=== PATIENT | male | born 1955 | race Caucasian/White ===

== ENCOUNTER 2016-11-21 15:39 | Emergency (ER) | payer BC, OTHER ==
[~2016-11-21] VITALS: Ht 177.8 cm; Wt 108.9 kg
[2016-11-21] MEDS ORDERED: AUGM875T27 PO (15:55)
[2016-11-21] MEDS ORDERED: ZYRT10CA PO (15:55)
[2016-11-21] MEDS ORDERED: LISI10TA4 (15:55)
[2016-11-21] MEDS ORDERED: PRAV20TA2 (15:55)
[2016-11-21] MEDS ORDERED: ACETAMINOPHEN 325 MG TAB PO ONE (17:00)
[2016-11-21] MEDS ORDERED: LEVALBUTEROL 1.25 MG/0.5 ML CONCENTRATE NEB NEB ONE (17:00)
[2016-11-21] MEDS ORDERED: ZITHTAB PO (17:28)
[2016-11-21] MEDS ORDERED: ALBU17IN INH (17:29)
[2016-11-21] MEDS ORDERED: MUCI600T34 PO (17:29)
--- NOTE | 2016-11-21 17:29 | REP ---
Clinical: Cough. Technique: PA and lateral. Comparison: None. Findings: Moderate hiatal hernia and evidence for prior repair. Cardiac silhouette is upper limits of normal. Lung mcintyre demonstrate chronic-appearing changes. Mild bronchitis cannot be excluded. No focal consolidation, effusion, or pneumothorax. Skeletal structures normal for age. Impression: Hiatal hernia. Chronic-appearing changes. Cannot exclude mild bronchitis. Signed by Ck Hinton MD 11/21/2016 05:21 P
[2016-11-21] MEDS ORDERED: AZITHROMYCIN 250 MG TAB PO ONE (17:30)
[2016-11-21 17:38] VITALS: BP 127/79
== END 2016-11-21 17:46 | disposition home or self-care (01) ==
LOC: M ED 16:50
DX: J20.9 Acute bronchitis, unspecified (principal); J02.0 Streptococcal pharyngitis; H66.90 Otitis media, unspecified, unspecified ear; K44.9 Diaphragmatic hernia without obstruction or gangrene; E78.00 Pure hypercholesterolemia, unspecified; I10 Essential (primary) hypertension; K57.92 Diverticulitis of intestine, part unspecified, without perforation or abscess without bleeding; R73.09 Other abnormal glucose; Z87.891 Personal history of nicotine dependence; Z88.8 Allergy status to other drugs, medicaments and biological substances; Z79.2 Long term (current) use of antibiotics; Z79.899 Other long term (current) drug therapy

== ENCOUNTER → 2022-02-19 | Outpatient (CLI) | payer MEDICARE, BC ==
[~2022-02-19] MED LIST: ALBU17IN INH; AUGM875T28 PO; LISI10TA22; MUCI600T37 PO; PRAV20TA2; ZITHTAB PO; ZYRT10CA PO
== END ==
LOC: M PLAIMG 06:37
PROVIDERS: ATTEND Podiatrist Foot & Ankle Surgery
DX: G57.62 Lesion of plantar nerve, left lower limb (principal); G57.61 Lesion of plantar nerve, right lower limb; G57.52 Tarsal tunnel syndrome, left lower limb; E11.42 Type 2 diabetes mellitus with diabetic polyneuropathy

== ENCOUNTER 2023-01-09 05:54 | Inpatient (IN) | payer MEDICARE, BC ==
[~2023-01-09] VITALS: Ht 177.8 cm; Wt 101.7 kg
[2023-01-09 06:46] LABS: BASO # 0.1 10^3/uL (0.0-0.2); BASO % 0.7 % (0.0-1.0); EOS # 0.2 10^3/uL (0.0-0.5); EOS % 1.2 % (0.0-3.0); HEMOGLOBIN 16.6 g/dl (13.5-17.5); LYMPH # 1.3 10^3/uL (1.5-5.0); LYMPH % 7.8 % (24.0-44.0); MEAN CORPUSCULAR HEMOGLOBIN 30.2 pg (27.0-33.0); MEAN CORPUSCULAR HGB CONC 32.5 g/dl (32.0-36.5); MEAN CORPUSCULAR VOLUME 92.7 fl (80.0-96.0); MONO % 6.3 % (2.0-8.0); NEUTROPHILS # 13.5 10^3/uL (1.5-8.5); NEUTROPHILS % 83.3 % (36.0-66.0); PLATELET COUNT, AUTOMATED 300 10^3/uL (150-450); WHITE BLOOD COUNT 16.2 10^3/uL (4.0-10.0)
[2023-01-09 06:56] LABS: INR 0.8; PROTHROMBIN TIME 11.3 SECONDS (12.5-14.5)
[2023-01-09 07:10] LABS: AMYLASE 383 U/L (30-118)
[2023-01-09 07:11] LABS: ALBUMIN 4.9 G/DL (3.2-5.2); ALKALINE PHOSPHATASE 114 U/L (46-116); ALT/SGPT 39 U/L (7.0-40); AST/SGOT 36 U/L (<34); BILIRUBIN,DIRECT 0.2 MG/DL (<0.4); BILIRUBIN,TOTAL 0.8 MG/DL (0.3-1.2); BLOOD UREA NITROGEN 23 MG/DL (9-23); CALCIUM LEVEL 10.6 MG/DL (8.3-10.6); CARBON DIOXIDE LEVEL 27 MMOL/L (20-31); CHLORIDE LEVEL 98 MMOL/L (98-107); CK-MB VALUE MASS 3.9 NG/ML (<3.6); CREATININE FOR GFR 0.98 MG/DL (0.70-1.30); GLOMERULAR FILTRATION RATE > 60.0 (>49); GLUCOSE, FASTING 248 MG/DL (74-106); POTASSIUM SERUM 4.2 MMOL/L (3.5-5.1); SODIUM LEVEL 136 MMOL/L (136-145); TOTAL PROTEIN 8.1 G/DL (5.7-8.2)
[2023-01-09 07:13] LABS: RSV AMPLIFICATION NEGATIVE (NEGATIVE)
[2023-01-09] MEDS ORDERED: NS 1,000 ML IV ONE ×2 (07:15→08:30)
[2023-01-09] MEDS ORDERED: PIPERACILLIN/TAZOBACTAM SOD 4.5 GM in D5W MINI-BAG PLUS 50 ML IV ONE (07:20)
[2023-01-09] MEDS ORDERED: ONDANSETRON 4MG 2ML VIAL IV ONE (07:25)
[2023-01-09] MEDS ORDERED: ONDANSETRON 4MG 2ML VIAL As Ordered ONE (07:27)
[2023-01-09] MEDS ORDERED: ISOVUE-370 76% 100ML VIAL As Ordered ONE (07:31)
[2023-01-09 07:38] LABS: CPK CREATINE PHOSPHOKINASE 146 U/L (46-171); LIPASE 793 U/L (12-53); MB/CK RELATIVE INDEX 2.67 (< OR =4)
[2023-01-09] MEDS: MORPHINE 2 MG/ML 1ML VIAL IV PRN ×4 (07:56→23:13)
[2023-01-09 08:03] LABS: CK-MB VALUE MASS 3.6 NG/ML (<3.6)
[2023-01-09 08:05] LABS: MB/CK RELATIVE INDEX 2.76 (< OR =4)
[2023-01-09] MEDS ORDERED: metroNIDAZOLE 500 MG in IV 1 EA IV ONE (08:40)
[2023-01-09] MEDS ORDERED: LIDOCAINE 2% JELLY 6ML SYRINGE TOP ONE (08:45)
[2023-01-09] MEDS: SINEMET**CR** 25/100 TABCR PO SCH (09:00)
[2023-01-09] MEDS: GABAPENTIN 300 MG CAP PO SCH ×3 (09:00→21:44)
[2023-01-09] MEDS ORDERED: CREON-24 CAPSULE PO PRN (09:00)
[2023-01-09] MEDS: DULoxetine 30MG CAPSULE (CYMBALTA) PO SCH ×2 (09:00→21:45)
[2023-01-09] MEDS: MELOXICAM (MOBIC) 7.5 MG TAB PO SCH (09:00)
[2023-01-09] MEDS: ASPIRIN 81MG ENTERIC TABLET PO SCH (09:00)
[2023-01-09] MEDS: METOPROLOL SUCC *XL* 25MG TAB (TopROL *XL*) PO SCH (09:00)
[2023-01-09] MEDS ORDERED: CREO24CA PO ×2 (09:17)
[2023-01-09] MEDS ORDERED: LISI10TA22 PO (09:25)
[2023-01-09] MEDS ORDERED: CYMB1CAP5 PO ×2 (09:25)
[2023-01-09] MEDS ORDERED: XIFA550T PO (09:25)
[2023-01-09] MEDS ORDERED: COLE1TAB PO ×2 (09:25)
[2023-01-09] MEDS ORDERED: PRAV80TA2 PO (09:25)
[2023-01-09] MEDS ORDERED: GABA-282 PO (09:25)
[2023-01-09] MEDS ORDERED: METO1TAB32 PO (09:25)
[2023-01-09] MEDS ORDERED: ECOT81TA5 PO (09:27)
[2023-01-09] MEDS ORDERED: TAB-TAB3 PO (09:27)
[2023-01-09] MEDS ORDERED: MELO15TA28 PO (09:45)
[2023-01-09] MEDS ORDERED: CARB1TAB PO (09:45)
[2023-01-09] MEDS ORDERED: ACET-897 PO (09:45)
[2023-01-09] MEDS ORDERED: COLA100C5 PO (09:46)
[2023-01-09] MEDS ORDERED: HOME MED LIST COMPLETE! XX SCH (09:50)
[2023-01-09] MEDS ORDERED: DEXTROSE 50% 50ML SYRINGE IV PRN (10:05)
[2023-01-09] MEDS ORDERED: GLUCAGON INJ 1MG VIAL SC PRN (10:05)
[2023-01-09] MEDS ORDERED: ONDANSETRON 4MG 2ML VIAL IV PRN (10:05)
[2023-01-09] MEDS ORDERED: DOCUSATE SODIUM 100MG CAPSULE PO PRN (10:05)
[2023-01-09] MEDS ORDERED: GLUCOSE 4GM CHEW TABLET PO PRN (10:05)
[2023-01-09] MEDS: CREON-24 CAPSULE PO SCH ×2 (12:30→16:41)
[2023-01-09] MEDS: NS 1,000 ML IV SCH ×2 (15:23→23:18)
[2023-01-09 15:40] VITALS: BP 155/90
[2023-01-09] MEDS ORDERED: CHLORASEPTIC SPRAY MT PRN (15:40)
[2023-01-09] MEDS: ACETAMINOPHEN 500 MG TAB PO PRN (15:42)
[2023-01-09] MEDS: FEXOFENADINE 60MG TAB PO SCH (16:40)
[2023-01-09] MEDS: metroNIDAZOLE 500 MG in IV 1 EA IV SCH (17:11)
[2023-01-09 21:33] VITALS: BP 174/66
[2023-01-09] MEDS: PRAVASTATIN 20 MG TAB PO SCH (21:44)
[2023-01-09 23:00] VITALS: BP 153/69
[2023-01-10] MEDS: metroNIDAZOLE 500 MG in IV 1 EA IV SCH ×3 (02:30→17:48)
[2023-01-10] MEDS: MORPHINE 2 MG/ML 1ML VIAL IV PRN ×5 (03:02→21:15)
[2023-01-10 06:00] VITALS: BP 147/70
[2023-01-10 06:52] LABS: HEMATOCRIT 39.8 % (42.0-52.0); MEAN CORPUSCULAR HEMOGLOBIN 30.8 pg (27.0-33.0); MEAN CORPUSCULAR HGB CONC 33.2 g/dl (32.0-36.5); MEAN CORPUSCULAR VOLUME 92.8 fl (80.0-96.0); PLATELET COUNT, AUTOMATED 204 10^3/uL (150-450); RED BLOOD COUNT 4.29 10^6/uL (4.30-6.10); WHITE BLOOD COUNT 9.9 10^3/uL (4.0-10.0)
[2023-01-10 06:53] LABS: HEMOGLOBIN 13.2 g/dl (13.5-17.5)
[2023-01-10 07:03] LABS: LIPASE 45 U/L (12-53)
[2023-01-10 07:11] LABS: ALBUMIN 3.6 G/DL (3.2-5.2); ALKALINE PHOSPHATASE 87 U/L (46-116); ALT/SGPT 25 U/L (7.0-40); AST/SGOT 22 U/L (<34); BILIRUBIN,TOTAL 1.1 MG/DL (0.3-1.2); BLOOD UREA NITROGEN 15 MG/DL (9-23); CALCIUM LEVEL 8.5 MG/DL (8.3-10.6); CARBON DIOXIDE LEVEL 26 MMOL/L (20-31); CHLORIDE LEVEL 105 MMOL/L (98-107); CREATININE FOR GFR 0.68 MG/DL (0.70-1.30); GLOMERULAR FILTRATION RATE > 60.0 (>49); GLUCOSE, FASTING 149 MG/DL (74-106); MAGNESIUM LEVEL 1.6 MG/DL (1.8-2.4); POTASSIUM SERUM 3.6 MMOL/L (3.5-5.1); SODIUM LEVEL 139 MMOL/L (136-145)
[2023-01-10] MEDS ORDERED: MAG SULF 1GM/100ML (MAG RUN) 1 GM in IV 1 EA IV ONE (08:00)
[2023-01-10] MEDS: CREON-24 CAPSULE PO SCH ×3 (08:00→17:16)
[2023-01-10] MEDS: ASPIRIN 81MG ENTERIC TABLET PO SCH (08:19)
[2023-01-10] MEDS: METOPROLOL SUCC *XL* 25MG TAB (TopROL *XL*) PO SCH (08:19)
[2023-01-10] MEDS: GABAPENTIN 300 MG CAP PO SCH ×3 (08:19→21:00)
[2023-01-10] MEDS: FEXOFENADINE 60MG TAB PO SCH (08:40)
[2023-01-10] MEDS: MELOXICAM (MOBIC) 7.5 MG TAB PO SCH (08:40)
[2023-01-10] MEDS: DULoxetine 30MG CAPSULE (CYMBALTA) PO SCH ×2 (08:40→21:00)
[2023-01-10] MEDS: SINEMET**CR** 25/100 TABCR PO SCH (08:41)
[2023-01-10] MEDS: NS 1,000 ML IV SCH ×2 (11:05→23:35)
[2023-01-10 14:00] VITALS: BP 142/76
[2023-01-10] MEDS: ACETAMINOPHEN 500 MG TAB PO PRN (14:20)
[2023-01-10] MEDS: SUCRALFATE SUSP 1GM/10ML UD NG SCH (17:48)
[2023-01-10 20:00] VITALS: BP 142/77
[2023-01-10] MEDS ORDERED: diphenhydrAMINE 50MG/ML VIAL IV ONE (20:30)
[2023-01-10] MEDS: PRAVASTATIN 20 MG TAB PO SCH (21:00)
[2023-01-11] MEDS: SUCRALFATE SUSP 1GM/10ML UD NG SCH ×5 (01:21→23:23)
[2023-01-11] MEDS: metroNIDAZOLE 500 MG in IV 1 EA IV SCH ×3 (01:23→17:11)
[2023-01-11 06:06] VITALS: BP 146/82
[2023-01-11] MEDS: CREON-24 CAPSULE PO SCH ×3 (07:54→15:25)
[2023-01-11] MEDS: FEXOFENADINE 60MG TAB PO SCH (07:57)
[2023-01-11] MEDS: DULoxetine 30MG CAPSULE (CYMBALTA) PO SCH ×2 (07:57→20:34)
[2023-01-11] MEDS: MELOXICAM (MOBIC) 7.5 MG TAB PO SCH (07:58)
[2023-01-11] MEDS: SINEMET**CR** 25/100 TABCR PO SCH (07:58)
[2023-01-11] MEDS: GABAPENTIN 300 MG CAP PO SCH ×3 (07:58→20:34)
[2023-01-11] MEDS: ASPIRIN 81MG ENTERIC TABLET PO SCH (08:01)
[2023-01-11] MEDS: METOPROLOL SUCC *XL* 25MG TAB (TopROL *XL*) PO SCH (08:02)
[2023-01-11 08:48] LABS: BASO % 0.5 % (0.0-1.0); EOS # 0.3 10^3/uL (0.0-0.5); EOS % 3.4 % (0.0-3.0); HEMATOCRIT 41.2 % (42.0-52.0); HEMOGLOBIN 13.4 g/dl (13.5-17.5); LYMPH # 0.8 10^3/uL (1.5-5.0); LYMPH % 9.1 % (24.0-44.0); MEAN CORPUSCULAR HEMOGLOBIN 30.5 pg (27.0-33.0); MEAN CORPUSCULAR HGB CONC 32.5 g/dl (32.0-36.5); MEAN CORPUSCULAR VOLUME 93.8 fl (80.0-96.0); MONO # 0.8 10^3/uL (0.0-0.8); MONO % 9.8 % (2.0-8.0); NEUTROPHILS # 6.6 10^3/uL (1.5-8.5); PLATELET COUNT, AUTOMATED 192 10^3/uL (150-450); RED BLOOD COUNT 4.39 10^6/uL (4.30-6.10); WHITE BLOOD COUNT 8.6 10^3/uL (4.0-10.0)
[2023-01-11 09:17] LABS: ALBUMIN 3.3 G/DL (3.2-5.2); ALKALINE PHOSPHATASE 90 U/L (46-116); ALT/SGPT < 9 U/L (7.0-40); AST/SGOT 21 U/L (<34); BLOOD UREA NITROGEN 8 MG/DL (9-23); CALCIUM LEVEL 8.7 MG/DL (8.3-10.6); CARBON DIOXIDE LEVEL 29 MMOL/L (20-31); CHLORIDE LEVEL 105 MMOL/L (98-107); CREATININE FOR GFR 0.67 MG/DL (0.70-1.30); GLOMERULAR FILTRATION RATE > 60.0 (>49); GLUCOSE, FASTING 141 MG/DL (74-106); MAGNESIUM LEVEL 1.8 MG/DL (1.8-2.4); POTASSIUM SERUM 4.1 MMOL/L (3.5-5.1); SODIUM LEVEL 139 MMOL/L (136-145); TOTAL PROTEIN 6.2 G/DL (5.7-8.2)
[2023-01-11] MEDS: ACETAMINOPHEN 500 MG TAB PO PRN (12:33)
[2023-01-11 14:00] VITALS: BP 137/83
[2023-01-11] MEDS: NS 1,000 ML IV SCH (15:34)
[2023-01-11] MEDS ORDERED: diphenhydrAMINE 25MG CAP PO ONE (20:25)
[2023-01-11] MEDS: PRAVASTATIN 20 MG TAB PO SCH (20:34)
[2023-01-12] MEDS: NS 1,000 ML IV SCH (00:35)
[2023-01-12] MEDS: metroNIDAZOLE 500 MG in IV 1 EA IV SCH ×3 (01:45→17:59)
[2023-01-12] MEDS: SUCRALFATE SUSP 1GM/10ML UD NG SCH ×4 (05:10→23:02)
[2023-01-12 05:30] VITALS: BP 137/83
[2023-01-12 06:22] LABS: BASO # 0.1 10^3/uL (0.0-0.2); BASO % 0.7 % (0.0-1.0); EOS # 0.5 10^3/uL (0.0-0.5); EOS % 5.2 % (0.0-3.0); HEMATOCRIT 45.2 % (42.0-52.0); HEMOGLOBIN 14.5 g/dl (13.5-17.5); LYMPH # 1.3 10^3/uL (1.5-5.0); LYMPH % 14.5 % (24.0-44.0); MEAN CORPUSCULAR HEMOGLOBIN 30.1 pg (27.0-33.0); MEAN CORPUSCULAR HGB CONC 32.1 g/dl (32.0-36.5); MONO # 0.8 10^3/uL (0.0-0.8); MONO % 9.7 % (2.0-8.0); NEUTROPHILS % 69.4 % (36.0-66.0); PLATELET COUNT, AUTOMATED 261 10^3/uL (150-450); RED BLOOD COUNT 4.81 10^6/uL (4.30-6.10); WHITE BLOOD COUNT 8.7 10^3/uL (4.0-10.0)
[2023-01-12 06:40] LABS: ALBUMIN 3.5 G/DL (3.2-5.2); ALKALINE PHOSPHATASE 100 U/L (46-116); ALT/SGPT 17 U/L (7.0-40); AST/SGOT 22 U/L (<34); BLOOD UREA NITROGEN 11 MG/DL (9-23); CALCIUM LEVEL 8.9 MG/DL (8.3-10.6); CARBON DIOXIDE LEVEL 27 MMOL/L (20-31); CHLORIDE LEVEL 103 MMOL/L (98-107); CREATININE FOR GFR 0.77 MG/DL (0.70-1.30); GLOMERULAR FILTRATION RATE > 60.0 (>49); GLUCOSE, FASTING 132 MG/DL (74-106); MAGNESIUM LEVEL 1.9 MG/DL (1.8-2.4); POTASSIUM SERUM 3.9 MMOL/L (3.5-5.1); SODIUM LEVEL 140 MMOL/L (136-145); TOTAL PROTEIN 6.7 G/DL (5.7-8.2)
[2023-01-12] MEDS: CREON-24 CAPSULE PO SCH ×3 (07:42→17:49)
[2023-01-12] MEDS: FEXOFENADINE 60MG TAB PO SCH (07:55)
[2023-01-12] MEDS: GABAPENTIN 300 MG CAP PO SCH ×3 (07:55→19:59)
[2023-01-12] MEDS: MELOXICAM (MOBIC) 7.5 MG TAB PO SCH (07:55)
[2023-01-12] MEDS: ASPIRIN 81MG ENTERIC TABLET PO SCH (07:55)
[2023-01-12] MEDS: DULoxetine 30MG CAPSULE (CYMBALTA) PO SCH ×2 (07:55→20:00)
[2023-01-12] MEDS: SINEMET**CR** 25/100 TABCR PO SCH (07:55)
[2023-01-12] MEDS: METOPROLOL SUCC *XL* 25MG TAB (TopROL *XL*) PO SCH (07:57)
[2023-01-12] MEDS ORDERED: ANALGESIC BALM CRM 3OZ TOP PRN (08:05)
[2023-01-12] MEDS: DOCUSATE SODIUM 100MG CAPSULE PO SCH ×2 (09:38→19:59)
[2023-01-12] MEDS: SENNA 8.6 MG TAB (SENOKOT) PO SCH ×2 (09:38→19:59)
[2023-01-12] MEDS: ACETAMINOPHEN 500 MG TAB PO PRN (09:45)
[2023-01-12 14:00] VITALS: BP 135/75
[2023-01-12] MEDS: HEPARIN SOD (PORCINE) 5000UNITS/ML 1ML VIAL/SYRINGE SQ SCH ×2 (14:55→20:57)
[2023-01-12 19:59] VITALS: BP 132/75
[2023-01-12] MEDS: PRAVASTATIN 20 MG TAB PO SCH (20:00)
[2023-01-12 21:30] VITALS: BP 137/75
[2023-01-13] MEDS: metroNIDAZOLE 500 MG in IV 1 EA IV SCH ×2 (01:52→09:47)
[2023-01-13 05:00] VITALS: BP 143/75
[2023-01-13] MEDS: HEPARIN SOD (PORCINE) 5000UNITS/ML 1ML VIAL/SYRINGE SQ SCH (05:33)
[2023-01-13] MEDS: SUCRALFATE SUSP 1GM/10ML UD NG SCH ×2 (05:33→12:23)
[2023-01-13 06:44] LABS: BASO # 0.1 10^3/uL (0.0-0.2); BASO % 1.1 % (0.0-1.0); EOS # 0.4 10^3/uL (0.0-0.5); HEMATOCRIT 37.7 % (42.0-52.0); LYMPH % 17.3 % (24.0-44.0); MEAN CORPUSCULAR HEMOGLOBIN 30.5 pg (27.0-33.0); MEAN CORPUSCULAR HGB CONC 32.9 g/dl (32.0-36.5); MEAN CORPUSCULAR VOLUME 92.9 fl (80.0-96.0); MONO # 0.7 10^3/uL (0.0-0.8); MONO % 12.8 % (2.0-8.0); NEUTROPHILS # 3.3 10^3/uL (1.5-8.5); NEUTROPHILS % 60.4 % (36.0-66.0); PLATELET COUNT, AUTOMATED 211 10^3/uL (150-450); RED BLOOD COUNT 4.06 10^6/uL (4.30-6.10); WHITE BLOOD COUNT 5.5 10^3/uL (4.0-10.0)
[2023-01-13 06:46] LABS: HEMOGLOBIN 12.4 g/dl (13.5-17.5)
[2023-01-13 06:56] LABS: ALBUMIN 3.1 G/DL (3.2-5.2); ALKALINE PHOSPHATASE 79 U/L (46-116); ALT/SGPT 15 U/L (7.0-40); AST/SGOT 19 U/L (<34); BILIRUBIN,TOTAL 0.5 MG/DL (0.3-1.2); BLOOD UREA NITROGEN 10 MG/DL (9-23); CALCIUM LEVEL 8.7 MG/DL (8.3-10.6); CARBON DIOXIDE LEVEL 26 MMOL/L (20-31); CHLORIDE LEVEL 106 MMOL/L (98-107); CREATININE FOR GFR 0.66 MG/DL (0.70-1.30); GLOMERULAR FILTRATION RATE > 60.0 (>49); GLUCOSE, FASTING 129 MG/DL (74-106); MAGNESIUM LEVEL 1.7 MG/DL (1.8-2.4); POTASSIUM SERUM 3.8 MMOL/L (3.5-5.1); SODIUM LEVEL 140 MMOL/L (136-145); TOTAL PROTEIN 5.5 G/DL (5.7-8.2)
[2023-01-13] MEDS ORDERED: MAGNESIUM OXIDE 400MG TAB (MAG-OX) PO ONE (07:45)
[2023-01-13] MEDS: CREON-24 CAPSULE PO SCH ×2 (08:00→12:23)
[2023-01-13] MEDS: SENNA 8.6 MG TAB (SENOKOT) PO SCH (08:19)
[2023-01-13] MEDS: DOCUSATE SODIUM 100MG CAPSULE PO SCH (08:19)
[2023-01-13] MEDS: DULoxetine 30MG CAPSULE (CYMBALTA) PO SCH (08:19)
[2023-01-13] MEDS: ASPIRIN 81MG ENTERIC TABLET PO SCH (08:19)
[2023-01-13] MEDS: GABAPENTIN 300 MG CAP PO SCH (08:20)
[2023-01-13] MEDS: MELOXICAM (MOBIC) 7.5 MG TAB PO SCH (08:20)
[2023-01-13] MEDS: FEXOFENADINE 60MG TAB PO SCH (08:20)
[2023-01-13] MEDS: SINEMET**CR** 25/100 TABCR PO SCH (08:21)
[2023-01-13 08:26] VITALS: BP 104/69
[2023-01-13] MEDS ORDERED: MOM 30ML SUSPENSION UDC PO ONE (09:00)
[2023-01-13] MEDS: METOPROLOL SUCC *XL* 25MG TAB (TopROL *XL*) PO SCH (09:00)
[2023-01-13] MEDS ORDERED: SENO8.6T10 PO (10:19)
[2023-01-13 10:35] LABS: HEMATOCRIT 39.5 % (42.0-52.0); HEMOGLOBIN 12.6 g/dl (13.5-17.5)
== END 2023-01-13 12:34 | disposition home or self-care (01) | DRG 390 ==
LOC: M ED 05:54 → M ED INP 10:03 → ENRESERV 14:30 → M MSPAV 15:29
PROVIDERS: ADMIT Family Medicine; ATTEND Family Medicine
DX: K56.699 Other intestinal obstruction unspecified as to partial versus complete obstruction (principal); I25.10 Atherosclerotic heart disease of native coronary artery without angina pectoris; Z95.5 Presence of coronary angioplasty implant and graft; K86.89 Other specified diseases of pancreas; I10 Essential (primary) hypertension; Z79.82 Long term (current) use of aspirin; Z79.899 Other long term (current) drug therapy; Z88.8 Allergy status to other drugs, medicaments and biological substances; Z20.822 Contact with and (suspected) exposure to COVID-19

== ENCOUNTER → 2025-03-08 | Outpatient (CLI) | payer MEDICARE, BC ==
[~2025-03-08] MED LIST changes: +ACET-897 PO; +AUGM500T34 PO; +CARB1TAB PO; +COLA100C5 PO; +COLE1TAB PO; +CREO24CA PO; +CYMB1CAP5 PO; +ECOT81TA5 PO; +ELIQ5TAB PO; +EZET10TA21 PO; +GABA-1172 PO; +LISI10TA22 PO; +LISI5TAB11 PO; +LORA-930 PO; +MELO15TA28 PO; +METF-838 PO; +METO1TAB32 PO; +OXYC1TAB23 PO; -PRAV20TA2; +PRAV20TA78; +PRAV80TA75 PO; +PREG-35 PO; +PREG100C2 PO; +PREG50CA3 PO; +SENO8.6T10 PO; +TAB-TAB3 PO; +TIRZ12.5 INJ; +XIFA550T PO
== END ==
LOC: M RAD 09:16
PROVIDERS: ATTEND Physician Assistant
DX: S12.601A Unspecified nondisplaced fracture of seventh cervical vertebra, initial encounter for closed fracture (principal); W18.30XA Fall on same level, unspecified, initial encounter; Y92.009 Unspecified place in unspecified non-institutional (private) residence as the place of occurrence of the external cause

== ENCOUNTER → 2025-04-05 | Outpatient (CLI) | payer MEDICARE, BC | LOC: M RAD 10:24 | PROVIDERS: ATTEND Physician Assistant | DX: S12.601A Unspecified nondisplaced fracture of seventh cervical vertebra, initial encounter for closed fracture (principal); X58.XXXA Exposure to other specified factors, initial encounter; Y92.9 Unspecified place or not applicable; Y93.9 Activity, unspecified; Y99.9 Unspecified external cause status ==

== ENCOUNTER → 2025-04-27 | Outpatient (CLI) | payer MEDICARE, BC | LOC: M RAD 10:34 | PROVIDERS: ATTEND Physician Assistant | DX: S12.600D Unspecified displaced fracture of seventh cervical vertebra, subsequent encounter for fracture with routine healing (principal); M85.88 Other specified disorders of bone density and structure, other site; M47.812 Spondylosis without myelopathy or radiculopathy, cervical region ==

== ENCOUNTER 2025-08-20 17:15 | Emergency (ER) | payer MEDICARE, BC ==
[~2025-08-20] VITALS: Ht 177.8 cm; Wt 112.4 kg
[~2025-08-20 17:15] MED LIST changes: -EZET10TA21 PO; +EZET10TA57 PO
[2025-08-20 18:38] VITALS: BP 117/76; TEMP 96.9; O2SAT 94
== END 2025-08-20 18:49 | disposition home or self-care (01) ==
LOC: M ED 17:15
DX: S00.03XA Contusion of scalp, initial encounter (principal); Y92.019 Unspecified place in single-family (private) house as the place of occurrence of the external cause; Y93.9 Activity, unspecified; Y99.9 Unspecified external cause status; W19.XXXA Unspecified fall, initial encounter; I10 Essential (primary) hypertension; E11.9 Type 2 diabetes mellitus without complications; Z88.8 Allergy status to other drugs, medicaments and biological substances; Z79.01 Long term (current) use of anticoagulants; Z79.2 Long term (current) use of antibiotics; Z79.84 Long term (current) use of oral hypoglycemic drugs; Z79.899 Other long term (current) drug therapy